=== PATIENT | male | born 1955 | race Caucasian/White ===

== ENCOUNTER 2023-12-08 21:18 | Emergency (ER) | payer SELFPAY ==
[~2023-12-08] VITALS: Ht 170.2 cm; Wt 108.9 kg
[~2023-12-08 21:18] MED LIST: CEPH500 PO; ESOM20 PO; GLIP5 PO; LISI20 PO; METF500 PO; NOVOLOG100 UNIT/2 INJ; OXYACE5T PO; PIOG15 PO; PROM25 PO; RANI150 PO
[2023-12-08] MEDS ORDERED: EpiNEPhrine 1 MG/1 ML 1ML Vial IM ONE (21:30)
[2023-12-08] MEDS ORDERED: DiphenhydrAMINE HCl 50 MG/ML 1ML Vial IV ONE (21:30)
[2023-12-08] MEDS ORDERED: EPINEPhrine HCl 1 MG/ML 1ML Amp IM ONE (21:30)
[2023-12-08] MEDS ORDERED: Dexamethasone Sod Phos 10 MG/ML 1ML VIAL IV ONE (21:30)
[2023-12-08] MEDS ORDERED: Famotidine 10 MG/ML 2ML Vial IV ONE (21:30)
[2023-12-08 21:48] LABS: BASOPHILS ABSOLUTE AUTO 0.03 K/mm3 (0.00-0.23); BASOPHILS PERCENT AUTO 0 % (0-2); EOSINOPHILS ABSOLUTE AUTO 0.07 K/mm3 (0.00-0.68); EOSINOPHILS PERCENT AUTO 1 % (0-6); Hematocrit 47.2 % (37.0-53.0); Hemoglobin 16.5 g/dL (13.5-17.5); IMMATURE GRAN ABSOLUTE AUTO 0.03 K/mm3 (0.00-0.10); IMMATURE GRAN PERCENT AUTO 0 % (0-1); LYMPHOCYTES PERCENT AUTO 41 % (21-46); MONOCYTES ABSOLUTE AUTO 0.61 K/mm3 (0.16-1.47); MONOCYTES PERCENT AUTO 8 % (4-13); Mean Corpuscular HGB 28.8 pg (26.0-34.0); Mean Corpuscular Volume 82 fL (80-100); Mean Platelet Volume 10.2 fL (9.1-12.4); NEUTROPHILS ABSOLUTE AUTO 3.59 K/mm3 (1.96-9.15); NEUTROPHILS PERCENT AUTO 49 % (41-73); Platelet Count 290 K/mm3 (150-400); RDW Coefficient Variation 14.1 % (11.7-14.2); RDW Standard Deviation 42.1 fL (35.1-46.3); Red Blood Cell Count 5.73 M/mm3 (4.30-5.90); White Blood Cell Count 7.33 K/mm3 (4.00-11.30)
[2023-12-08 22:09] LABS: Albumin, Blood 3.6 g/dL (3.4-5.0); Albumin/Globulin Ratio 0.9 (0.8-1.8); Bilirubin, Total 0.4 mg/dL (0.1-1.0); Bun/Creatinine Ratio 24.8 (12.0-20.0); Calcium, Blood 8.8 mg/dL (8.5-10.1); Creatinine, Blood 0.73 mg/dL (0.60-1.20); Globulin, Blood 3.9 g/dL (2.2-4.0); Potassium, Blood 4.1 mmol/L (3.5-5.5); Total Protein, Blood 7.5 g/dL (6.4-8.2)
[2023-12-09 01:30] VITALS: BP 150/83
[2023-12-09] MEDS ORDERED: EPIPEN0.3 MG/0.3 IM (01:52)
== END 2023-12-09 01:54 | disposition home or self-care (01) ==
LOC: ER 21:18
PROVIDERS: Physician Assistant
DX: T78.09XA Anaphylactic reaction due to other food products, initial encounter (principal); K21.9 Gastro-esophageal reflux disease without esophagitis; E11.9 Type 2 diabetes mellitus without complications; I10 Essential (primary) hypertension; Z79.84 Long term (current) use of oral hypoglycemic drugs; Z79.4 Long term (current) use of insulin; Z79.899 Other long term (current) drug therapy; Z91.013 Allergy to seafood
CPT/HCPCS: 80053; 85025; 93005; 93010; 96372-59; 96374; 96375; 99285-25; J0171; J1100; J1200